=== PATIENT | male | born 1980 | race Caucasian/White ===

== ENCOUNTER 2018-11-24 15:04 | Emergency (ER) | payer SELFPAY ==
[~2018-11-24] VITALS: Ht 162.6 cm; Wt 72.6 kg
[2018-11-24 15:15] VITALS: BP 166/110
[2018-11-24] MEDS ORDERED: KETOROLAC 60 MG/2 ML VIAL IM ONE (15:25)
--- NOTE | 2018-11-24 15:25 | NUR ---
PATIENT PRESENTS TO ED WITH THE CHIEF C/O LEFT FOOT WOUND PUNCTURE. PT STEPPED ON A NAIL EARLIER TODAY. NO BLEEDING NOTED FROM THE SITE. REDNESS NOTED ON THE SITE. UNKNOWN TETNUS SHOT, 10/10 SHARP PAIN. PMH: NONE RX: NONE SKIN IS PINK/WARM/DRY; AAOX4. PT DENIES ANY FEVER. PATIENT STATES PAIN OF 10/10 AT THIS TIME; VSS; PATIENT POSITIONED FOR COMFORT; HOB ELEVATED; BEDRAILS UP X2; BED DOWN. ER MD MADE AWARE OF PT STATUS.
[2018-11-24 15:31] VITALS: BP 153/102
--- NOTE | 2018-11-24 16:40 | NUR ---
Patient discharged with v/s stable. Written and verbal after care instructions given and explained. Patient alert, oriented and verbalized understanding of instructions. Ambulatory with steady gait. All questions addressed prior to discharge. ID band removed. Patient advised to follow up with PMD. Rx of NORCO AND MOTRIN given. Patient educated on indication of medication including possible reaction and side effects. Opportunity to ask questions provided and answered.
== END 2018-11-24 16:40 | disposition home or self-care (01) ==
LOC: MED 15:04
DX: S91.332A Puncture wound without foreign body, left foot, initial encounter (principal); W22.09XA Striking against other stationary object, initial encounter; Y93.89 Activity, other specified; Y92.89 Other specified places as the place of occurrence of the external cause; Y99.8 Other external cause status
CPT/HCPCS: 90471; 90715; 96372; 99283; J1885

== ENCOUNTER 2018-11-29 09:51 | Inpatient (IN) | payer MEDICAID ==
[~2018-11-29] VITALS: Ht 165.1 cm; Wt 72.6 kg
--- NOTE | 2018-11-29 10:03 | NUR ---
PT TAKEN BY WHEELCHAIR TO ER BED 03
[2018-11-29 10:07] VITALS: BP 164/109
--- NOTE | 2018-11-29 10:21 | NUR ---
Olga Lidia benitezconi in EDM - 11/29/18 at 1111 by MED1 38/M [facility] C/O RIGHT FOOT PAIN AND SWELLING; WAS SEEN ON THURSDAY GIVEN TDAP AND NORCO RX. PT STATEWS SWELLING WORSENED, PAIN 08/04. RX: SHANNAN HX: SHANNAN
--- NOTE | 2018-11-29 10:21 | NUR ---
38/M [facility] FAM[facility] C/O LEFT FOOT PAIN AND SWELLING; WAS SEEN ON THURSDAY GIVEN TDAP AND NORCO RX. PT STATEWS SWELLING WORSENED, PAIN 08/04. RX: DENIES HX: DENIES
[2018-11-29] MEDS ORDERED: KETOROLAC 30 MG/ML VIAL IVP ONE (11:45)
[2018-11-29] MEDS ORDERED: AMPICILLIN/SULBACTAM 3 GM VIAL IM ONE (11:45)
[2018-11-29] MEDS ORDERED: ACETAMINOPHEN 325 MG TAB PO PRN (12:05)
[2018-11-29] MEDS ORDERED: DOCUSATE SODIUM 100 MG GELCAP PO PRN (12:05)
[2018-11-29] MEDS ORDERED: ONDANSETRON 4 MG/2 ML VIAL IM/IVP PRN (12:05)
[2018-11-29] MEDS ORDERED: AMPICILLIN/SULBACTAM 3 GM in NACL 0.9% 100 ML IV ONE (12:10)
[2018-11-29 12:15] LABS: BASOPHILS % (AUTO) 0.3 % (0.0-2.0); EOSINOPHILS # (AUTO) 0.2 K/uL (0-0.4); EOSINOPHILS % (AUTO) 1.9 % (0.0-4.0); HEMATOCRIT 43.5 % (36-52); HEMOGLOBIN 14.7 g/dL (12.0-18.0); LYMPHOCYTES # (AUTO) 1.2 K/uL (2.0-11.5); LYMPHOCYTES % (AUTO) 15.1 % (20.5-51.1); MEAN CORPUSCULAR HEMOGLOBIN 31 pg (27-31); MEAN CORPUSCULAR HGB CONC 34 g/dL (33-37); MEAN CORPUSCULAR VOLUME 91.3 fL (80-94); MONOCYTES # (AUTO) 0.5 K/uL (0.8-1.0); MONOCYTES % (AUTO) 6.2 % (1.7-9.3); NEUTROPHILS # (AUTO) 6.1 K/uL (1.8-7.7); NEUTROPHILS % (AUTO) 76.5 % (42.2-75.2); PLATELET COUNT (AUTO) 225 K/uL (140-450); RED BLOOD CELL COUNT(AUTO) 4.77 MIL/uL (4.20-6.10); RED CELL DISTRIBUTION WIDTH 12.7 % (11.6-13.7)
[2018-11-29] MEDS ORDERED: CLINDAMYCIN 600 MG in DEXTROSE 5% 50 ML IV ONE (12:40)
[2018-11-29 12:42] LABS: BILIRUBIN,URINE NEGATIVE (NEGATIVE); BLOOD, URINE 2+ (NEGATIVE); COLOR,URINE YELLOW (YELLOW); LEUKOCYTE ESTERASE ,URINE NEGATIVE (NEGATIVE); NITRITE, URINE NEGATIVE (NEGATIVE); UGLUCOSE 3+ (NEGATIVE)
[2018-11-29 12:45] LABS: APPEARANCE,URINE SLIGHTLY HAZY (CLEAR)
[2018-11-29 12:46] LABS: RBC,URINE 3-10 (FEW) /HPF (0-5); WBC,URINE 0-5 (RARE) /HPF (0-5)
[2018-11-29] MEDS ORDERED: LACTOBACILLUS RHAMNOSUS GG 1 EACH CAP PO SCH (12:48)
[2018-11-29 12:50] LABS: PROTHROMBIN TIME 8.5 secs (10.8-13.4)
[2018-11-29 12:51] LABS: ANION GAP 11.8 (8-16); CARBON DIOXIDE 28.1 mmol/L (21-32); CREATININE 2.1 mg/dL (0.7-1.3); POTASSIUM 3.9 mmol/L (3.5-5.1); TOTAL BILIRUBIN 0.4 mg/dL (0.0-1.0)
[2018-11-29 13:00] VITALS: BP 164/104
--- NOTE | 2018-11-29 13:00 | NUR ---
Patient will be admitted to care of DR FALCON. Admited to MS. Will go to 112A. Belongings list completed. Report to SRIKANTH ARIAS.
[2018-11-29 13:01] LABS: CHOL/HDL RATIO 6.1 (1-4.5); FREE T4 (FREE THYROXINE) 0.96 ng/dL (0.76-1.46); MAGNESIUM 2.2 mg/dL (1.8-2.4); PHOSPHORUS 3.3 mg/dL (2.5-4.9); THYROID STIMULATING HORMONE 2.84 uIU/mL (0.34-3.74)
[2018-11-29] MEDS ORDERED: DEXTROSE 50% 50 ML SYR IVP PRN (13:15)
[2018-11-29] MEDS ORDERED: LIDOCAINE 2% 1000 MG/50 ML VIAL INJ SCH (13:30)
[2018-11-29] MEDS: MORPHINE SULFATE 2 MG/ML SYR IVP PRN ×2 (13:41→21:10)
[2018-11-29] MEDS: NACL 0.9% 1,000 ML IV SCH (13:42)
[2018-11-29] MEDS: CLINDAMYCIN PHOS 600MG/D5W PM 50 ML IV SCH ×2 (18:00→23:38)
[2018-11-29 19:14] LABS: BARBITURATE, URINE NEGATIVE ng/ml (NEG <=200); BENZODIAZEPINE, URINE NEGATIVE ng/mL (NEG <=200); CANNABINOID, URINE NEGATIVE ng/mL (NEG <=50); COCAINE, URINE NEGATIVE ng/mL (NEG <=300); OPIATE, URINE POSITIVE ng/mL (NEG <=2000); PHENCYCLIDINE SCREEN,URINE NEGATIVE ng/mL (NEG <=25)
[2018-11-29] MEDS: BLOOD GLUCOSE MONITORING 1 DEV DEV FS SCH (21:00)
[2018-11-29] MEDS: INSULIN LISPRO SLIDING SCALE 100 UNITS/ML VIAL SUBQ PRN (21:06)
[2018-11-29 21:12] VITALS: BP 152/96
--- NOTE | 2018-11-29 22:06 | NUR ---
SLEEPING AT THIS TIME. NO SOB. MEDICATED WITH MORPHINE IVP REQUESTED EARLIER C/O LEFT FOOT CELLULITIS SITE. CALL LIGHT WITH IN REACH.
[2018-11-30 00:44] VITALS: BP 149/94
--- NOTE | 2018-11-30 00:59 | NUR ---
PT. PROVIDED WITH SNACK RT DIABETIC. ABLE TO USE CALL LIGHT FOR HELP. COMFORTABLE AT THIS TIME. NO FURTHER COMPLAINTS DONE. DRESSING TO LEFT FOOT INTACT AND NO BLEEDING. REFUSED TO PUT ON BOOT SHOE TO LEFT FOOT AT THIS TIME.
--- NOTE | 2018-11-30 04:39 | NUR ---
SLEEPING WELL. NO RESTLESSNESS. ABLE TO USE CALL LIGHT FOR HELP.
[2018-11-30] MEDS: NACL 0.9% 1,000 ML IV SCH ×2 (04:44→21:24)
[2018-11-30] MEDS: BLOOD GLUCOSE MONITORING 1 DEV DEV FS SCH ×4 (05:53→20:34)
[2018-11-30] MEDS: CLINDAMYCIN PHOS 600MG/D5W PM 50 ML IV SCH ×4 (05:53→23:46)
[2018-11-30] MEDS: INSULIN LISPRO SLIDING SCALE 100 UNITS/ML VIAL SUBQ PRN ×3 (05:54→20:35)
[2018-11-30 06:14] LABS: BASOPHILS % (AUTO) 0.3 % (0.0-2.0); EOSINOPHILS # (AUTO) 0.2 K/uL (0-0.4); EOSINOPHILS % (AUTO) 2.2 % (0.0-4.0); HEMATOCRIT 39.6 % (36-52); HEMOGLOBIN 13.5 g/dL (12.0-18.0); LYMPHOCYTES # (AUTO) 0.8 K/uL (2.0-11.5); LYMPHOCYTES % (AUTO) 10.6 % (20.5-51.1); MEAN CORPUSCULAR HEMOGLOBIN 31 pg (27-31); MEAN CORPUSCULAR HGB CONC 34 g/dL (33-37); MEAN CORPUSCULAR VOLUME 90.5 fL (80-94); MONOCYTES # (AUTO) 0.5 K/uL (0.8-1.0); MONOCYTES % (AUTO) 6.4 % (1.7-9.3); NEUTROPHILS # (AUTO) 6.3 K/uL (1.8-7.7); NEUTROPHILS % (AUTO) 80.5 % (42.2-75.2); PLATELET COUNT (AUTO) 213 K/uL (140-450); RED BLOOD CELL COUNT(AUTO) 4.37 MIL/uL (4.20-6.10); RED CELL DISTRIBUTION WIDTH 12.5 % (11.6-13.7); WHITE BLOOD COUNT (AUTO) 7.8 K/uL (4.8-10.8)
[2018-11-30 06:16] LABS: T4 (THYROXINE) 7.2 ug/dL (4.5-12.0)
[2018-11-30 06:48] LABS: ANION GAP 9.2 (8-16); CARBON DIOXIDE 26.9 mmol/L (21-32); POTASSIUM 4.1 mmol/L (3.5-5.1)
[2018-11-30 06:55] LABS: CHOL/HDL RATIO 5.7 (1-4.5)
--- NOTE | 2018-11-30 07:22 | NUR ---
ENDORSED TO THE NEXT RN FOR CONTINUITY OF CARE. SLEEPING. WAKES UP EASILY WHEN CALLED BY NAME. DRESSING TO LEFT FOOT INTACT AND NO BLEEDING.
--- NOTE | 2018-11-30 07:30 | NUR ---
RECEIVED PT ON BED AAOX4. NO SOB NOTED, NO C/O PAIN AT THIS TIME. IV TO RT AC PATENT AND INTACT. CHEST, CLEAR, ABDOMEN SOFT, BOWEL SOUNDS PRESENT. LEFT FOOT DRESSING DRY AND INTACT, LEFT FOOT ELEVATED WITH PILLOW. INSTRUCTED PT TO CALL FOR ASSISTANCE, CALL LIGHT WITHIN REACH, PT VERBALIZED UNDERSTANDING.
--- NOTE | 2018-11-30 07:56 | NUR ---
NUTRITION SCREENING DUE WITHIN 1-2 DAYS OF ADMISSION. JOSE LUIS [address]
[2018-11-30 08:53] VITALS: BP 149/103
--- NOTE | 2018-11-30 09:46 | NUR ---
PATIENT HAS BEEN SCREENED AND CATEGORIZED HIGH NUTRITION RISK. PATIENT WILL BE SEEN WITHIN 1-2 DAYS OF ADMISSION. 11/30/18-12/01/[address]
[2018-11-30] MEDS: LACTOBACILLUS RHAMNOSUS GG 1 EACH CAP PO SCH (10:56)
[2018-11-30] MEDS: MORPHINE SULFATE 2 MG/ML SYR IVP PRN ×2 (10:58→22:32)
--- NOTE | 2018-11-30 11:00 | NUR ---
DR. HARDEN AT THE BEDSIDE. WOUND DRESSING DONE. WOUND CULTURE SWAB TAKEN AND SENT TO LAB.
--- NOTE | 2018-11-30 11:30 | NUR ---
11/30/18 RD INITIAL ASSESSMENT COMPLETED PLEASE REFER TO NUTRITION ASSESSMENT UNDER CARE ACTIVITY FOR ESTIMATED NUTRITIONAL NEEDS. 1. CONTINUE CCHO 60 GM AND CARDIAC DIET TOLERATED 2. RD PROVIDED NUTRITION EDUCATION ON DIABETES 3. RD TO FOLLOW-UP 3-5 DAYS, MODERATE RISK JOSE LUIS [address]
--- NOTE | 2018-11-30 12:25 | NUR ---
INSTRUCTED PT NO TO EAT AND DRINK FOR PROCEDURE, PT VERBALIZED UNDERSTANDING.
[2018-11-30] MEDS ORDERED: ASPIRIN 81 MG TAB.CHEW PO SCH (14:05)
--- NOTE | 2018-11-30 14:16 | NUR ---
CM NOTE INFORMED SRIKANTH RN, PATIENT'S NURSE, THE NEED FOR DIABETIC TEACHING PATIENT WILL BE STARTED ON INSULIN ON DISCHARGE.
--- NOTE | 2018-11-30 15:40 | NUR ---
CONSENT FOR I&D OF LEFT FOOT SIGNED BY PT. PROCEDURE EXPLAINED WELL BY DR. VELIZ WITH [employer] FOREIGN LANGUAGE STENOGRAPHER SERVICE #: [id number], PT VERBALIZED UNDERSTANDING. DIABETTIC TEACHINGS GIVEN WELL.
[2018-11-30 16:00] VITALS: BP 155/99
[2018-11-30] MEDS: ATORVASTATIN 20 MG TAB PO SCH (17:40)
--- NOTE | 2018-11-30 17:55 | NUR ---
PT RESTING. NO SOB NOTED. NO C/O PAIN AT THIS TIME.
--- NOTE | 2018-11-30 19:10 | NUR ---
PT AWAKE, NO SOB NOTED. NO C/O PAIN AT THIS TIME. WILL ENDORSE TO NEXT SHIFT NURSE FOR CONTINUITY OF CARE.
--- NOTE | 2018-11-30 19:25 | NUR ---
RECEIVED FROM AM RN IN BED WITH AT BEDSIDE. NO COMPLAINTS AT THIS TIME. DRESSING TO LEFT FOOT INTACT AND NO BLEEDING. A/O X 4. ROM X 4. CLEAR SPEECH. ABLE TO VERBALIZE SIMPLE NEEDS.
--- NOTE | 2018-11-30 21:33 | NUR ---
PT. SLEEPING AT THIS TIME. NO COMPLAINTS OF PAIN DONE AT THIS TIME. CALL LIGHT WITH IN REACH. BLOOD SUGAR PER FINGERSTICK 238. REGULAR INSULIN COVERED. VERBALIZES NEEDS WELL IN [place]. FOR I AND D IN A.M. TO LEFT FOOT INFECTION.
[2018-11-30 22:32] VITALS: BP 148/98
--- NOTE | 2018-11-30 23:00 | NUR ---
PT. SLEEPING AT THIS TIME. ABLE TO VERBALIZE NEEDS WELL. NO SOB. NO RESTLESSNESS. CALL LIGHT WITH IN REACH AT ALL TIMES.
[2018-11-30 23:39] VITALS: BP 94/73
--- NOTE | 2018-12-01 | NUR ---
PT. AWAKE AND VITAL SIGN TAKEN. REMINDED NPO RT PROCEDURE IN A.M. PROS AND CONS OF NPO EXPLAINED TO PT. "OK"
[2018-12-01] MEDS ORDERED: DEXTROSE 5% 1,000 ML IV SCH (03:05)
[2018-12-01] MEDS: CLINDAMYCIN PHOS 600MG/D5W PM 50 ML IV SCH ×4 (05:44→23:28)
[2018-12-01] MEDS: BLOOD GLUCOSE MONITORING 1 DEV DEV FS SCH ×4 (06:14→20:48)
[2018-12-01] MEDS: INSULIN LISPRO SLIDING SCALE 100 UNITS/ML VIAL SUBQ PRN ×5 (06:15→20:54)
--- NOTE | 2018-12-01 07:01 | NUR ---
PT. SLEPT WELL. NPO SINCE MIDNIGHT FOR PROCEDURE I AND D TO LEFT FOOT THIS A.M.
--- NOTE | 2018-12-01 07:02 | NUR ---
Received bedside report from pm elva Pratt. Pt asleep, FLACC 0, respirations even & nonlabored. Call light within reach.
--- NOTE | 2018-12-01 07:20 | NUR ---
Pt left unit via hospital bed to OR, accompanied by 2 OR nurses. Pt awake, verbally responsive, no signs of distress at this time.
[2018-12-01] MEDS ORDERED: KETOROLAC 30 MG/ML VIAL ONE (07:25)
[2018-12-01] MEDS ORDERED: DEXAMETHASONE 4 MG/ML VIAL ONE (07:25)
[2018-12-01] MEDS ORDERED: PROPOFOL 200 MG/20 ML VIAL IV ONE (07:25)
[2018-12-01] MEDS ORDERED: SEVOFLURANE 250 ML BTL INH ONE (07:25)
[2018-12-01] MEDS ORDERED: ONDANSETRON 4 MG/2 ML VIAL ONE (07:25)
[2018-12-01] MEDS ORDERED: MEPERIDINE 25 MG/ML SYR IVP PRN (07:35)
[2018-12-01] MEDS ORDERED: diphenhydrAMINE 50 MG/ML VIAL IVP PRN (07:35)
[2018-12-01] MEDS ORDERED: BLOOD GLUCOSE MONITORING 1 DEV DEV FS SCH (07:35)
[2018-12-01] MEDS ORDERED: ONDANSETRON 4 MG/2 ML VIAL IVP PRN (07:35)
[2018-12-01] MEDS ORDERED: HYDROmorphone 1 MG/ML AMP IVP PRN (07:35)
[2018-12-01] MEDS ORDERED: LIDOCAINE 2% 1000 MG/50 ML VIAL INJ ONE (07:40)
[2018-12-01] MEDS ORDERED: BUPIVACAINE-MPF 0.5% 30 ML VIAL INJ ONE (07:40)
[2018-12-01] MEDS ORDERED: MIDAZOLAM 2 MG/2 ML VIAL ONE (07:41)
[2018-12-01] MEDS ORDERED: fentaNYL 0.05 MG/ML VIAL ONE (07:41)
--- NOTE | 2018-12-01 09:10 | NUR ---
Pt came back from s/p I&D of left foot via hospital bed. Received report from OR nurse Mayi. Pt awake, verbally responsive, no c/o pain at this time. Right ac IV intact with ongoing NS @ 60ml/hr. Left foot dressing clean, dry, & intact. Call light placed within reach.
[2018-12-01 09:20] VITALS: BP 183/114
--- NOTE | 2018-12-01 09:20 | NUR ---
Dr Nails notified of pt's elevated BP at rest. Per physician, will input orders accordingly. Addendum: 12/01/18 at 1049 by Areli Mendoza RN Amended: Links added.
[2018-12-01] MEDS: ASPIRIN 81 MG TAB.CHEW PO SCH (09:31)
[2018-12-01] MEDS: LACTOBACILLUS RHAMNOSUS GG 1 EACH CAP PO SCH (09:31)
[2018-12-01] MEDS: NACL 0.9% 1,000 ML IV SCH ×2 (09:37→22:17)
[2018-12-01] MEDS ORDERED: LISINOPRIL 10 MG TAB PO SCH (10:17)
--- NOTE | 2018-12-01 11:15 | NUR ---
AWAKE AND ALERT VERBALLY RESPONSIVE TOLERATED INCENTIVE SPIROMETRY THERAPY WELL WITHOUT INCIDENT ACHIEVED 2200ml PREDICTED 25OOml ENCOURAGED PATIENT WITH ACKNOWLEDGEMENT TO USE INCENTIVE SPIROMETRY EVERY 1-2 HOURS WHILE AWAKE
[2018-12-01 11:30] VITALS: BP 150/98
--- NOTE | 2018-12-01 11:40 | NUR ---
Pt transferred from room 107A to 111A via hospital bed. All belongings with pt during transfer. Pt oriented to room, verbalized & return demonstrated understanding. Call light within reach. Right ac IV intact & asymptomatic with ongoing NS @ 60ml/hr.
[2018-12-01 13:27] LABS: BASOPHILS % (AUTO) 0.1 % (0.0-2.0); HEMATOCRIT 41.1 % (36-52); HEMOGLOBIN 13.8 g/dL (12.0-18.0); LYMPHOCYTES # (AUTO) 0.5 K/uL (2.0-11.5); LYMPHOCYTES % (AUTO) 5.4 % (20.5-51.1); MEAN CORPUSCULAR HEMOGLOBIN 31 pg (27-31); MEAN CORPUSCULAR HGB CONC 34 g/dL (33-37); MEAN CORPUSCULAR VOLUME 92.2 fL (80-94); MONOCYTES # (AUTO) 0.1 K/uL (0.8-1.0); MONOCYTES % (AUTO) 1.5 % (1.7-9.3); NEUTROPHILS # (AUTO) 8.2 K/uL (1.8-7.7); PLATELET COUNT (AUTO) 241 K/uL (140-450); RED BLOOD CELL COUNT(AUTO) 4.45 MIL/uL (4.20-6.10); RED CELL DISTRIBUTION WIDTH 12.3 % (11.6-13.7); WHITE BLOOD COUNT (AUTO) 8.8 K/uL (4.8-10.8)
[2018-12-01 13:40] LABS: ANION GAP 8.6 (8-16); CARBON DIOXIDE 28.2 mmol/L (21-32); CREATININE 2.2 mg/dL (0.7-1.3); POTASSIUM 4.8 mmol/L (3.5-5.1)
[2018-12-01 13:43] LABS: MAGNESIUM 2.2 mg/dL (1.8-2.4); PHOSPHORUS 3.4 mg/dL (2.5-4.9)
--- NOTE | 2018-12-01 15:15 | NUR ---
Pt asleep in bed, respirations even & nonlabored, FLACC 0. Call light within reach. Left foot dressing clean, dry, & intact.
[2018-12-01 16:00] VITALS: BP 128/86
[2018-12-01] MEDS ORDERED: INSULIN LANTUS 100 UNITS/ML 10 ML VIAL SUBQ SCH (17:00)
[2018-12-01] MEDS: ATORVASTATIN 20 MG TAB PO SCH (17:28)
--- NOTE | 2018-12-01 19:15 | NUR ---
Report given to margareth Machuca. Addendum: 12/01/18 at 1941 by Areli Mendoza RN Correction: Report given to margareth Piña
--- NOTE | 2018-12-01 19:16 | NUR ---
RECD. RESTING IN BED, AWAKE, A/OX4. RESPIRATION EVEN AND UNLABORED. IV OF NS AT 60 ML/HR INFUSING, RIGHT AC G20. INCISION IN THE LEFT FOOT, S/P I & D, COVERED WITH DRESSING DRY AND INTACT. PLAN OF CARE FOR THE SHIFT DISCUSSED. VERBALIZED UNDERSTANDING. PAIN IN THE SITE 11/04, STATE TOLERABLE. WILL CALL NURSE WHEN PAIN INCREASE. VISITORS AT THE BEDSIDE.
--- NOTE | 2018-12-01 19:41 | NUR ---
Patient's Plan of Care was discussed and reviewed with CHARGE ENTRY: JORGE. WILL CONTINUE WITH CURRENT PLAN OF CARE.
[2018-12-01 20:00] VITALS: BP 145/60
[2018-12-01] MEDS: HYDROcodone/APAP 7.5/325 MG 1 TAB PO PRN (20:48)
[2018-12-02] MEDS: HYDROcodone/APAP 7.5/325 MG 1 TAB PO PRN ×3 (01:33→15:46)
[2018-12-02] MEDS: NACL 0.9% 1,000 ML IV SCH ×2 (01:37→18:41)
[2018-12-02] MEDS ORDERED: ZOLPIDEM 5 MG TAB PO PRN (02:00)
--- NOTE | 2018-12-02 02:23 | NUR ---
UNABLE TO SLEEP, MEDICATED WITH AMBIEN 5 MG. ORDERED.
--- NOTE | 2018-12-02 03:20 | NUR ---
STILL AWAKE, TOSSING IN BED.
[2018-12-02 04:11] VITALS: BP 147/79
[2018-12-02] MEDS: MORPHINE SULFATE 2 MG/ML SYR IVP PRN ×4 (04:12→23:42)
[2018-12-02] MEDS ORDERED: LORazepam 2 MG/ML VIAL IM/IVP PRN (04:25)
[2018-12-02] MEDS: CLINDAMYCIN PHOS 600MG/D5W PM 50 ML IV SCH ×4 (05:15→23:42)
--- NOTE | 2018-12-02 06:52 | NUR ---
MEDICATED WITH NORCO PER DR. VELIZ ADVISED WHEN INFORMED THAT MORPHINE GIVEN AT 0412 DID NOT WORK FOR PATIENT.
[2018-12-02] MEDS: BLOOD GLUCOSE MONITORING 1 DEV DEV FS SCH ×4 (07:16→20:30)
[2018-12-02] MEDS: INSULIN LISPRO SLIDING SCALE 100 UNITS/ML VIAL SUBQ PRN ×3 (07:17→20:30)
[2018-12-02 07:27] LABS: BASOPHILS % (AUTO) 0.4 % (0.0-2.0); EOSINOPHILS # (AUTO) 0.1 K/uL (0-0.4); EOSINOPHILS % (AUTO) 1.2 % (0.0-4.0); HEMATOCRIT 39.2 % (36-52); LYMPHOCYTES # (AUTO) 1.9 K/uL (2.0-11.5); LYMPHOCYTES % (AUTO) 22.7 % (20.5-51.1); MEAN CORPUSCULAR HEMOGLOBIN 31 pg (27-31); MEAN CORPUSCULAR HGB CONC 33 g/dL (33-37); MEAN CORPUSCULAR VOLUME 91.9 fL (80-94); MONOCYTES # (AUTO) 0.6 K/uL (0.8-1.0); MONOCYTES % (AUTO) 7.7 % (1.7-9.3); NEUTROPHILS # (AUTO) 5.7 K/uL (1.8-7.7); PLATELET COUNT (AUTO) 254 K/uL (140-450); RED BLOOD CELL COUNT(AUTO) 4.26 MIL/uL (4.20-6.10); RED CELL DISTRIBUTION WIDTH 12.3 % (11.6-13.7); WHITE BLOOD COUNT (AUTO) 8.4 K/uL (4.8-10.8)
--- NOTE | 2018-12-02 07:30 | NUR ---
SLEEPING IN BED, ENDORSED TO AM SHIFT NURSE FOR CONTINUITY OF CARE.
--- NOTE | 2018-12-02 07:31 | NUR ---
RECEIVED REPORT FROM BUSINESS REPORTER NURSE FOR CONTINUITY OF CARE. PT IN STABLE CONDITION. IV INTACT AND PATENT. RESPIRATIONS EVEN AND UNLABORED. SAFETY MEASURES IN PLACE. CALL LIGHT AT BEDSIDE. BED IN LOW POSITION. WILL CONTINUE TO MONITOR.
[2018-12-02 08:00] VITALS: BP 173/98
[2018-12-02 08:14] LABS: MAGNESIUM 2.2 mg/dL (1.8-2.4); PHOSPHORUS 3.5 mg/dL (2.5-4.9)
[2018-12-02 08:21] LABS: ANION GAP 9.7 (8-16); CARBON DIOXIDE 25.6 mmol/L (21-32); CREATININE 2.1 mg/dL (0.7-1.3); POTASSIUM 4.3 mmol/L (3.5-5.1)
--- NOTE | 2018-12-02 09:00 | NUR ---
GAVE ORDERED DUE MEDICATIONS. PT TOLERATED WELL. WILL CONTINUE TO MONITOR.
[2018-12-02] MEDS: LISINOPRIL 10 MG TAB PO SCH (09:50)
[2018-12-02] MEDS: NIFEdipine 30 MG TABER PO SCH (09:50)
[2018-12-02] MEDS: ASPIRIN 81 MG TAB.CHEW PO SCH (09:50)
[2018-12-02] MEDS: LACTOBACILLUS RHAMNOSUS GG 1 EACH CAP PO SCH (09:50)
[2018-12-02] MEDS ORDERED: ANTIFUNGAL CLEAR OINTMENT TP SCH (10:00)
--- NOTE | 2018-12-02 13:00 | NUR ---
FOOD BAGS FROM OUTSIDE AT BEDSIDE. PT ADVISED THAT HE WAS DX WITH DM.
[2018-12-02 16:00] VITALS: BP 154/97
--- NOTE | 2018-12-02 16:00 | NUR ---
NEW IV PLACED 20G RIGHT HAND. DC 20G RIGHT AC DUE TO LEAKAGE.
[2018-12-02] MEDS ORDERED: INSULIN LANTUS 100 UNITS/ML 10 ML VIAL SUBQ SCH (17:00)
[2018-12-02] MEDS: ATORVASTATIN 20 MG TAB PO SCH (17:13)
--- NOTE | 2018-12-02 17:28 | NUR ---
FAMILY MEMBERS BRINGING PT CHIPS, SODA, AND JELL-O. PT ADVISED THAT HIS BLOOD SUGAR IS HIGH AND TO EAT WHAT THE HOSPITAL OFFERS HIM. WILL CONTINUE TO MONITOR.
--- NOTE | 2018-12-02 19:30 | NUR ---
GAVE REPORT TO MARKETING PRODUCER NURSE FOR CONTINUITY OF CARE. PT IN STABLE CONDITION.
--- NOTE | 2018-12-02 19:30 | NUR ---
RECEIVED BEDSIDE REPORT FROM JUANA MONTAÑO, PATENT IN BED, ON RA C/O PAIN IN LEFT FOOT 06/04 WILL MEDICATE WITH MORPHINE. BG 332 WILL GIVE 8 UNITS INSULIN. BP 120/74 HR 74 RR 16 EVEN AND NON-LABORED. NOTED DRESSING IN LEFT FOOT, CLEAN DRY AND INTACT. IV IN RIGHT HAND, 20G INFUSING NS AT 100. EXPLAINED PLAN OF CARE, CALL LIGHT WITHIN REACH.
--- NOTE | 2018-12-02 20:32 | NUR ---
MORPHINE AND 8 UNITS INSULIN GIVEN, WILL CONTINUE TO MONITOR.
--- NOTE | 2018-12-02 22:00 | NUR ---
PATIENT REQUESTING TO EAT ICE CREAM, EDUCATION PROVIDED. WILL CONTINUE TO MONITOR.
--- NOTE | 2018-12-02 23:42 | NUR ---
PATIENT C/O PAIN 06/04 WILL MEDICATE ACCORDING TO MD ORDER.
[2018-12-03] VITALS: BP 125/78
--- NOTE | 2018-12-03 00:19 | NUR ---
ENDORSED PATIENT TO RF DESIGN ENGINEER JUANA SEE FOR CONTINUITY OF CARE. PATIENT STABLE.
[2018-12-03] MEDS: MORPHINE SULFATE 2 MG/ML SYR IVP PRN ×2 (05:25→09:34)
[2018-12-03] MEDS: CLINDAMYCIN PHOS 600MG/D5W PM 50 ML IV SCH ×2 (05:25→12:47)
[2018-12-03] MEDS: INSULIN LISPRO SLIDING SCALE 100 UNITS/ML VIAL SUBQ PRN ×2 (05:31→12:57)
[2018-12-03 06:52] LABS: BASOPHILS % (AUTO) 0.5 % (0.0-2.0); EOSINOPHILS # (AUTO) 0.3 K/uL (0-0.4); EOSINOPHILS % (AUTO) 3.4 % (0.0-4.0); HEMATOCRIT 41.1 % (36-52); HEMOGLOBIN 13.8 g/dL (12.0-18.0); LYMPHOCYTES % (AUTO) 25.4 % (20.5-51.1); MEAN CORPUSCULAR HEMOGLOBIN 31 pg (27-31); MEAN CORPUSCULAR HGB CONC 34 g/dL (33-37); MEAN CORPUSCULAR VOLUME 91.5 fL (80-94); MONOCYTES # (AUTO) 0.5 K/uL (0.8-1.0); MONOCYTES % (AUTO) 6.8 % (1.7-9.3); NEUTROPHILS % (AUTO) 63.9 % (42.2-75.2); PLATELET COUNT (AUTO) 278 K/uL (140-450); RED BLOOD CELL COUNT(AUTO) 4.49 MIL/uL (4.20-6.10); RED CELL DISTRIBUTION WIDTH 12.6 % (11.6-13.7); WHITE BLOOD COUNT (AUTO) 7.9 K/uL (4.8-10.8)
[2018-12-03] MEDS: BLOOD GLUCOSE MONITORING 1 DEV DEV FS SCH ×2 (06:58→11:30)
[2018-12-03 07:08] LABS: ANION GAP 6.3 (8-16); CREATININE 2.1 mg/dL (0.7-1.3); POTASSIUM 4.3 mmol/L (3.5-5.1)
[2018-12-03 07:13] LABS: MAGNESIUM 2.1 mg/dL (1.8-2.4); PHOSPHORUS 4.3 mg/dL (2.5-4.9)
--- NOTE | 2018-12-03 07:25 | NUR ---
ENDORSED REPORT TO DAYSHIFT NURSE AT BEDSIDE FOR CONTINUITY OF CA
--- NOTE | 2018-12-03 07:27 | NUR ---
RECEIVED REPORT FROM PM NURSE AT BEDSIDE. PT LYING ON HIS BED. PT POST I&D, HAS DRESSING ON LFT FOOT. PT SLEEPING ON HIS BED. UPDATED BOARD. HAS 20 G IV ACCESS ON HIS RT HAND, NS INFUSING AT 100 ML/HR. NO SIGN OF DISTRESS NOTED. DENIES PAIN AT THIS TIME. ALL SAFETY MEASURE IN PLACE. INFORMED PT TO USE CALL LIGHT FOR ANY HELP. WILL CONTINUE TO MONITOR PT.
[2018-12-03 08:00] VITALS: BP 140/101
[2018-12-03] MEDS: LISINOPRIL 10 MG TAB PO SCH (08:44)
[2018-12-03] MEDS: LACTOBACILLUS RHAMNOSUS GG 1 EACH CAP PO SCH (08:44)
[2018-12-03] MEDS: NIFEdipine 30 MG TABER PO SCH (08:44)
[2018-12-03] MEDS: ASPIRIN 81 MG TAB.CHEW PO SCH (08:45)
--- NOTE | 2018-12-03 08:47 | NUR ---
ADMINISTERED MEDS TO PT ORDERED. TOLERATED WELL. DENIES ANY PAIN. NO SIGN OF DISTRESS NOTED. PT ASKING ABOUT GOING HOME. INFORMED PT THAT WILL LET HIM KNOW WHEN DISCHARGE ORDER IS PLACED. VERBALIZED UNDERSTANDING. WILL CONTINUE TO MONITOR PT.
--- NOTE | 2018-12-03 10:00 | NUR ---
WOUND CARE CONSULT NOT DONE,PT'S PAIN 07/05 AFTER MEDICATED PY PRIMARY RN. SPOKE TO DR. NAVARRO, SURGEON, SURGICAL LUCILLE CLEAN ,NO ODOR, NO DRAINAGE, SUTURES AND IODOFORM PACKING IN PLACE, ONLY REMOVE THE SOILING DRESSING AND REPLACE NEW CLEAN 4X4 AND WRAP GENITALLY WITH KERLIX ROLLS AND DAVIS BANDAGE. PT. TOLERATE PROCEDURES WELL. DR. NAVARRO SAID THAT DR. DIALLO WILL VISIT PT. TODAY. AND SCHEDULE FOLLOW UP APPOINTMENT [facility] NEXT THURSDAY TO OFFICE VISIT. PT. NOTIFIED.
--- NOTE | 2018-12-03 10:12 | NUR ---
Foreign Correspondent Note: Per Wound Care Sonia, she recommends for patient to use a cane. I met with patient at bedside. Patient speaks Kazakh. Per patient, he already has a cane at home.
[2018-12-03] MEDS ORDERED: GLUC-805 FS (10:21)
[2018-12-03] MEDS ORDERED: LISI10TA11 PO (10:21)
[2018-12-03] MEDS ORDERED: NIFE30TE98 PO (10:21)
[2018-12-03] MEDS ORDERED: LANTUS SUBQ (10:21)
--- NOTE | 2018-12-03 10:23 | NUR ---
PT SEEN BY WOUND NURSE TORIN. STATES NOT TO DISCHARGE PT UNTIL SEEN BY ASSEMBLER HANDBAGS. PT GIVEN MORPHINE FOR HIS PAIN MANAGEMENT. WILL CONTINUE TO MONITOR PT.
[2018-12-03] MEDS: NACL 0.9% 1,000 ML IV SCH (10:30)
--- NOTE | 2018-12-03 12:57 | NUR ---
MEDICATION ADMINISTERED TO PT ORDERED. TOLERATED WELL. PT SEEN BY PUTTY PATCHER, WOUND CARE OF LFT FOOT PERFORMED. NO SIGN OF DISTRESS NOTED. PT UP AND EATING LUNCH AT HIS BEDSIDE. WILL CONTINUE TO MONITOR PT.
--- NOTE | 2018-12-03 13:00 | NUR ---
PT TO BE DISCHARGED , NEED WOUND PICTURE BEFORE DISCHARGE. PT REFUSED TO REOPEN DRESSING ON THE WOUND, STATES LOT OF PAIN. CHARGE NURSE AWARE. WOUND DRESSING DONE BY HOUSING INSTALLER.
--- NOTE | 2018-12-03 16:35 | NUR ---
PT WENT HOME WITH FAMILY MEMBER. PROVIDED ALL DISCHARGE INSTRUCTION AND PAPER. INFORMED PT TO FOLLOW WITH MUSICIAN INSTRUMENTAL ORDERED BY PHYSICIAN AND TO TAKE ALL THE MEDICATION ABX ORDERED. PT VERBALIZED UNDERSTANDING. ALL PAPER WORK AND PRESCRIPTION PROVIDED . WHEELED PT OUT TO LOBBY BY WHEELCHAIR.
[2018-12-03] MEDS ORDERED: INSULIN LANTUS 100 UNITS/ML 10 ML VIAL SUBQ SCH ×2 (17:00)
== END 2018-12-03 16:35 | disposition home or self-care (01) | DRG 364 ==
LOC: MED 09:51 → MTU 12:09 → MERGE 12:09 → MTU 22:29
PROVIDERS: ADMIT General Practice; ATTEND General Practice
PROC: 0J9R0ZX Drainage of Left Foot Subcutaneous Tissue and Fascia, Open Approach, Diagnostic (ICD-10-PCS; 2018-11-29)
PROC: 0QBP0ZX Excision of Left Metatarsal, Open Approach, Diagnostic (ICD-10-PCS; 2018-12-01)
PROC: 0QBP0ZZ Excision of Left Metatarsal, Open Approach (ICD-10-PCS; principal; 2018-12-01 07:30)
DX: L03.116 Cellulitis of left lower limb (principal); N17.0 Acute kidney failure with tubular necrosis; E11.22 Type 2 diabetes mellitus with diabetic chronic kidney disease; E11.51 Type 2 diabetes mellitus with diabetic peripheral angiopathy without gangrene; E44.0 Moderate protein-calorie malnutrition; E87.1 Hypo-osmolality and hyponatremia; E11.65 Type 2 diabetes mellitus with hyperglycemia; R31.9 Hematuria, unspecified; E78.1 Pure hyperglyceridemia; I16.1 Hypertensive emergency; Z83.3 Family history of diabetes mellitus; F17.210 Nicotine dependence, cigarettes, uncomplicated; E78.5 Hyperlipidemia, unspecified; L02.612 Cutaneous abscess of left foot; N18.3 Chronic kidney disease, stage 3 (moderate); Z68.26 Body mass index [BMI] 26.0-26.9, adult
CPT/HCPCS: 36415; 71045; 73630; 76770; 76881; 80048; 80053; 80305; 81001; 82140; 82150; 82550; 82948; 83036; 83605; 83615; 83690; 83735; 83880; 84100; 84436; 84439; 84443; 84479; 84484; 85025; 85610; 85730; 87040; 87070; 87081; 87086; 87186; 88305; 88311; 93005; 93925; 93970; 96374; 99285; J0295; J1100; J1815; J1885; J2001; J2250; J2270; J2405; J2704; J3010; J3490; J7030; J7060; Q0092

== ENCOUNTER 2024-04-20 06:24 | Emergency (ER) | payer MEDICAID, OTHER ==
[~2024-04-20] VITALS: Ht 167.6 cm; Wt 83.9 kg
[~2024-04-20 06:24] MED LIST: GLUC-805 FS; LANTUS SUBQ; LISI10TA30 PO; NIFE-184 PO
[2024-04-20 06:30] VITALS: BP 167/69; PULSE 77; RESP 17; TEMP 97.9; O2SAT 96
[2024-04-20] MEDS ORDERED: GABA100C PO (08:31)
[2024-04-20 08:50] VITALS: BP 145/62; PULSE 78; RESP 16; TEMP 98; O2SAT 99
== END 2024-04-20 08:50 | disposition home or self-care (01) ==
LOC: MED 06:24
DX: E11.40 Type 2 diabetes mellitus with diabetic neuropathy, unspecified (principal); R03.0 Elevated blood-pressure reading, without diagnosis of hypertension; N18.6 End stage renal disease; Z99.2 Dependence on renal dialysis; Z79.4 Long term (current) use of insulin; Z79.899 Other long term (current) drug therapy
CPT/HCPCS: 99283